=== PATIENT | male | born 1950 | race Caucasian/White ===

== ENCOUNTER 2025-10-05 11:44 | Emergency (ER) | payer OTHER ==
[~2025-10-05] VITALS: Ht 172.7 cm; Wt 120.0 kg
[~2025-10-05 11:44] MED LIST: AMOX1TAB16 MT
[2025-10-05 11:45] VITALS: O2SAT 99
[2025-10-05 13:30] LABS: HEMATOCRIT. 42.1 % (42.0-52.0); HEMOGLOBIN. 12.8 g/dL (14.0-18.0); RED BLOOD CELL COUNT 6.11 mill/uL (4.7-6.1); RED CELL DISTRIBUTION WIDTH 16.4 % (11.6-14.6)
[2025-10-05 13:50] LABS: TROPONIN I HIGH SENSITIVITY 31 ng/L (3.0-53)
[2025-10-05 14:02] LABS: BAND% 2.0 % (1.0-6.0); LYMPHOCYTES % MANUAL 4.0 % (20.0-50.0); MONOCYTES % MANUAL 7.0 % (2.0-8.0); NEUTROPHILS % MANUAL 87.0 % (45.0-75.0); PLATELET ESTIMATE NORMAL
[2025-10-05 14:03] LABS: PLATELET 137 x1000/uL (130-400)
[2025-10-05 14:05] LABS: CREATININE 0.9 mg/dL (0.6-1.3)
[2025-10-05 14:06] LABS: UREA NITROGEN BLOOD 8 mg/dL (9-23)
[2025-10-05 14:07] LABS: ASPARTATE AMINOTRANSFERASE 26 IU/L (<34)
[2025-10-05 14:08] LABS: BILIRUBIN DIRECT 0.5 mg/dL (<=3.0); BILIRUBIN TOTAL 1.4 mg/dL (0.1-1.0); PROTEIN TOTAL 6.9 g/dL (6.0-8.3)
[2025-10-05] MEDS: LABETALOL 5MG/ML 4ML INJ IV ONE (14:13)
[2025-10-05] MEDS: POTASSIUM CHLORIDE 20MEQ TABLET SR PO ONE (15:14)
[2025-10-05] MEDS: ASPIRIN 81MG TABLET PO ONE (17:00)
[2025-10-05 18:51] VITALS: BP 143/83; PULSE 90; RESP 18; TEMP 37.1; O2SAT 99
== END 2025-10-05 19:38 | disposition short-term general hospital (02) ==
LOC: ER 12:51 → CANBEDREQ 16:59 → ER 19:38
DX: R07.9 Chest pain, unspecified (principal); I16.0 Hypertensive urgency; R51.9 Headache, unspecified; E87.6 Hypokalemia; Z90.49 Acquired absence of other specified parts of digestive tract
CPT/HCPCS: 80076; 80048; 80320; 83690; 85025; 84484; 36415; 71045; 70450; 74176; 93005; 96374; 99291; J3490; G0480